=== PATIENT | male | born 1960 | race Caucasian/White ===

== ENCOUNTER 2017-08-26 08:00 | Outpatient (CLI) | payer OTHER | END 2017-08-26 23:59 | LOC: LAB.R 08:00 | PROVIDERS: ATTEND Surgery | DX: R19.5 Other fecal abnormalities (principal) | CPT/HCPCS: 82270 ==

== ENCOUNTER 2017-09-02 11:06 | Day surgery (SDC) | payer OTHER ==
[~2017-09-02 11:06] MED LIST: LIDO GARGLE 30 ML BOTTLE ONE
[2017-09-02] MEDS ORDERED: LACTATED RINGERS 1,000 ML IV ONE (11:16)
[2017-09-02] MEDS ORDERED: LIDO GARGLE 30 ML BOTTLE PO ONE ×3 (11:25→11:54)
[2017-09-02] MEDS ORDERED: fentaNYL 250 MCG/5 ML VIAL IVP ONE (12:17)
[2017-09-02] MEDS ORDERED: MIDAZOLAM 2 MG/2 ML VIAL IVP ONE (12:17)
[2017-09-02 12:36] VITALS: BP 89/55
== END 2017-09-02 11:07 | disposition home or self-care (01) ==
LOC: SDS 11:06
PROVIDERS: ATTEND Surgery
PROC: 0DB78ZX Excision of Stomach, Pylorus, Via Natural or Artificial Opening Endoscopic, Diagnostic (ICD-10-PCS; principal; 2017-09-02 12:15)
PROC: 0DBM8ZX Excision of Descending Colon, Via Natural or Artificial Opening Endoscopic, Diagnostic (ICD-10-PCS; 2017-09-02 12:15)
DX: R19.5 Other fecal abnormalities (principal); D13.1 Benign neoplasm of stomach; D12.4 Benign neoplasm of descending colon; E03.9 Hypothyroidism, unspecified
CPT/HCPCS: 43239; 45380; A9270; J3010; J7120; 88305

== ENCOUNTER 2018-01-07 19:40 | Outpatient (CLI) | payer OTHER | END 2018-01-07 19:41 | disposition short-term general hospital (02) | LOC: EMS 19:40 | PROVIDERS: ATTEND Surgery | DX: M79.604 Pain in right leg (principal) | CPT/HCPCS: A0425; A0429 ==

== ENCOUNTER 2018-01-28 07:39 | Outpatient (CLI) | payer OTHER ==
--- NOTE | 2018-01-28 17:10 | MRI Report ---
Reason: LOW BACK PAIN Procedure Date: 01/28/2018 Accession Number: [id number] / [id number] Procedure: MRI - Lumbar Spine W/O CPT Code: FULL RESULT: EXAM: MRI LUMBAR SPINE WITHOUT CONTRAST EXAM DATE: 01/28/2018 08:35 AM. CLINICAL HISTORY: Low back pain. COMPARISON: None. TECHNIQUE: Multiplanar, multisequence T1-weighted and fluid-sensitive sequences of the lumbar spine from T12 to S1 without contrast. Other: None. FINDINGS: There is a 14 degree dextroscoliosis of the lumbar spine with the apex at L3. The images of the liver and the spleen that are within the provided field of view exhibit normal signal intensities. The kidneys are without evidence of hydronephrosis. The conus terminates at the mid L1 vertebral body level and is normal. There are Schmorl's nodes within the endplates at T11-T12 and L5-S1. There is a mild to moderate decrease in the height of the disk at T11-T12, T12-L1, L1-L2, mild at L3-L4, L4-L5 and L5-S1. There is no significant atrophy of the paraspinal musculature or the psoas musculature. The abdominal aorta is of normal caliber. L1-L2: There is a broad-based disk osteophyte complex eccentric to the right with annular tear entering into the right foraminal space producing mild to moderate narrowing of the right neural foramen. There is no significant central canal stenosis. There is a moderate right lateral recess stenosis. The facets are normal. L2-L3: There is mild left facet arthropathy. There is no significant disk bulge or central canal stenosis. L3-L4: There is a minimal disk bulge producing a minimal central canal stenosis. The facets are normal. There is mild to moderate left and mild right foraminal stenosis. L4-L5: There is a broad-based disk osteophyte complex with a left paracentral extrusion of the disk producing a moderate central canal stenosis. There is moderate ligamentum flavum hypertrophy. The facets are normal. There is mild to moderate right and left foraminal stenosis. L5-S1: There is a broad-based disk bulge with a right paracentral extrusion of the disk with annular tear extending into the right lateral recess producing entrapment of the traversing right S1 nerve root. Recommend correlation for right S1 radiculopathy. The extrusion measures 7 x 8 x 14 mm. There is a mild central canal stenosis. The facets are normal. There is no significant foraminal stenosis. IMPRESSION: 1. There is a broad-based disk bulge at L5-S1 with a right paracentral extrusion of the disk with annular tear. The extrusion extends into the right lateral recess producing entrapment of the traversing right S1 nerve root and should produce a right S1 radiculopathy. Recommend correlation. There is a mild central canal stenosis. 2. There is a broad-based disk osteophyte complex with a left paracentral extrusion of the disk at L4-L5 producing a moderate central canal stenosis. 3. There is a minimal disk bulge at L3-L4 producing a minimal central canal stenosis. Comment: The following findings are so common in adults without low back pain that while we report their presence, they must be interpreted with caution and in the context of the clinical situation. (Reference Larry et al, Spine 2001) Prevalence of findings in patients without low back pain: Disk degeneration (any evidence): 92% Disk desiccation/T2 signal loss: 83% Disk height loss: 56% Disk bulge: 64% Disk protrusion: 32% Annular tear/high intensity zone: 38% RADIA
== END 2018-01-28 07:40 | disposition home or self-care (01) ==
LOC: DI 07:39
PROVIDERS: ATTEND Family Medicine
DX: M51.27 Other intervertebral disc displacement, lumbosacral region (principal); M25.78 Osteophyte, vertebrae
CPT/HCPCS: 72148